=== PATIENT | male | born 1980 | race Caucasian/White ===

== ENCOUNTER 2020-01-23 09:51 | Outpatient (REF) | payer OTHER, SELFPAY ==
[2020-01-23 10:26] LABS: MANUAL DIFF FLAG NO
[2020-01-23 10:31] LABS: Basophils Percent Auto 0.4 % (0-2); Eosinophils Absolute Auto 0.3 X10*3/uL (0.0-0.4); Eosinophils Percent Auto 3.4 % (0-4); Hematocrit 44.1 % (42-52); Hemoglobin 15.1 g/dl (14.0-18.0); Imm Gran Abs Auto 0.03 X10*3/uL (0.00-0.03); Imm Gran Pct Auto 0.4 % (0.0-0.4); Lymphocytes Absolute Auto 1.8 X10*3/uL (1.2-4.9); Lymphocytes Percent Auto 21.9 % (20-40); Mean Corpuscular HGB Conc 34.2 g/dl (31.0-36.0); Mean Corpuscular Hemoglobin 31.5 pg (27.0-33.0); Mean Corpuscular Volume 91.9 fL (80-98); Mean Platelet Volume 9.3 fL (9.4-12.4); Monocytes Absolute Auto 0.6 X10*3/uL (0.1-1.2); Monocytes Percent Auto 7.2 % (2-11); Neutrophils Absolute Auto 5.5 X10*3/uL (2.0-8.3); Neutrophils Percent Auto 66.7 % (45-73); Platelet Count 319 X10*3/uL (160-400); Red Cell Distribution Width 11.9 % (11.0-16.0); White Blood Count 8.3 X10*3/uL (4.8-10.8)
[2020-01-23 10:54] LABS: Alanine Aminotransferase 19 U/L (0-40); Albumin Level 4.3 g/dL (3.5-5.0); Alkaline Phosphatase 70 U/L (39-117); Anion Gap 12 (12-20); Aspartate Amino Transferase 15 U/L (5-37); Bilirubin Total 0.6 mg/dL (0.0-1.0); Blood Urea Nitrogen 15 mg/dL (9-16); Calcium 8.7 mg/dL (8.4-10.2); Carbon Dioxide 27 mmol/L (22-29); Chloride 104 mmol/L (96-108); Cholesterol 171 mg/dL; Estimated Glomerular Filt Rate > 60; Glucose Fasting 109 mg/dL (60-99); HDL Cholesterol 38 mg/dL; LDL Cholesterol Calculated 99 mg/dl; Potassium 4.6 mmol/l (3.3-5.1); Sodium 138 mmol/L (135-145); Total Protein 6.8 g/dL (6.5-8.0); Triglycerides 171 mg/dL
== END 2020-01-23 09:52 | disposition home or self-care (01) ==
LOC: HO.10HDL 09:51
PROVIDERS: Visit Provider Internal Medicine
DX: Z82.49 Family history of ischemic heart disease and other diseases of the circulatory system (principal)
CPT/HCPCS: 36415; 80053; 80061; 85025

== ENCOUNTER 2024-07-10 15:11 | Outpatient (AMB) | payer OTHER, SELFPAY ==
--- NOTE | 2024-07-10 15:26 | A.OFFPC_ITS ---
Vital Signs 07/10/24 15:34 Height 5 ft 7 in Weight 274 lb BMI 42.9 BP 138/80 Blood Pressure Location Lt brachial Position Sitting Pulse 80 Pulse Source Pulse Oximeter Temp 97.9 F Temp Source Axillary Pulse Oximetry (%) 96 Oxygen Delivery Method Room Air Intake Visit Reasons: Routine - see comments Pump Runner Required: No Accompanied by: Self / Same As Patient Allergies No Known Allergies Allergy (Verified 07/10/24 15:27) Tobacco use date assessed: 07/10/24 Dental Screening Dental Screen Date: 07/10/24 Did you have a dental visit in the last 12 months?: Yes Did you have a dental problem in the last 6 months where you did not have access to dental care?: No [facility] Medical History (Updated 07/10/24 @ 16:04 by Georgi Winter MD) Depression, major, in partial remission Body mass index [BMI] 40.0-44.9, adult Family History (Updated 07/10/24 @ 15:40 by Merline Garcia MA) Father No problems noted. Father No problems noted. Social History Housing: House Patient Tobacco Use Status: Former Tobacco user e-Cigarette/Vaping Use: Former Use service: No Current occupational status: employed Cognitive needs: No Hearing needs: No Vision needs: Yes (reading glasses) Questionnaire PHQ-9 Over the last 2 weeks, how often have you been bothered by any of the following problems? 1. Little interest or pleasure in doing things: not at all 2. Feeling down, depressed, or hopeless: not at all 3. Trouble falling or staying asleep, or sleeping too much: not at all 4. Feeling tired or having little energy: not at all 5. Poor appetite or overeating: not at all 6. Feeling bad about yourself - or that you are a failure or have let yourself or your family down: not at all 7. Trouble concentrating on things, such as reading the newspaper or watching television: not at all 8. Moving or speaking so slowly that other people could have noticed. Or the opposite - being so fidgety or restless that you have been moving around a lot more than usual: not at all 9. Thoughts that you would be better off or of hurting yourself in some way: not at all Total score: 0 Source: Developed by Drs. Ishan Pack, Sarai Gibson, Ihsan Estes and colleagues, with an educational parag from [employer]. Thrive Questionnaire Date Thrive assessed: 07/10/24 I am a: Patient Within the past 12 months, did the food you bought not last and you didn't have the money to get more?: Never true Within the past 12 months, did you worry whether your food would run out before you got money to buy more?: Never true Do you have trouble paying for medicines?: No Do you have trouble getting transportation to medical appointments?: No Do you have trouble paying your heating and electricity bill?: No Do you have trouble taking care of your child, family member or friend?: No Do you have trouble with day-to-day activities such as bathing, preparing meals, shopping, managing finances, etc.?: No Are you currently unemployed and looking for a job?: No Are you interested in more education?: No THRIVE Score: 0 AUDIT C Alcohol Use Questionnaire (AUDIT-C) 1. How often do you have a drink containing alcohol?: Never 3. How often do you have six or more drinks on one occasion?: Never Total Score: 0 Physical exam (Primary Care) Vital Signs: Last Vital Signs Temp 97.9 F 07/10/24 15:34 Pulse 80 07/10/24 15:34 BP 138/80 07/10/24 15:34 Pulse Ox 96 07/10/24 15:34 Oxygen Delivery Method Room Air 07/10/24 15:34 BMI result Body Mass Index 42.9 BMI Assessment/Plan discussion: High (one pound per week weight loss suggested.) BMI High, discussed plan: lifestyle, weight reduction and dietary Tobacco/Smoking Status: Tobacco use Status Tobacco use date assessed 07/10/24 07/10/24 15:32 Patient Tobacco Use Status Former Tobacco user 07/10/24 15:40 e-Cigarette/Vaping Use Former Use 07/10/24 15:40 PHQ-9: PHQ-9 Score PHQ-9: Total score 0 07/10/24 15:32 Thrive Assessment: Date of Thrive Assessment Date Thrive assessed 07/10/24 07/10/24 15:32 Coding Level of Care Code New Pt Level 4 (82424) Complex EM visit Add On G2211 Diagnoses Hyperlipidemia E78.5 Body mass index [BMI] 40.0-44.9, adult Z68.41 Depression, major, in partial remission F32.4 Scrotal cyst L72.9 Assessment & Plan Assessment & Plan (1) Hyperlipidemia: Code(s): E78.5 - Hyperlipidemia, unspecified Plan: BW has been ordered. Will call with results. (2) Body mass index [BMI] 40.0-44.9, adult: Code(s): Z68.41 - Body mass index [BMI] 40.0-44.9, adult Category: Medical Plan: Counselling on the importance of diet and exercise (3) Depression, major, in partial remission: Code(s): F32.4 - Major depressive disorder, single episode, in partial remission Category: Medical Plan: Patient was urged to start counselling. Warned him of the dangers of substance use, he is occasionally using now (4) Scrotal cyst: Code(s): L72.9 - Follicular cyst of the skin and subcutaneous tissue, unspecified Plan: History of Present Illness The patient is a 43-year-old male presenting with a skin cyst and increased migraine occurrences. The cyst, located on the scrotum, has recently come to the patient's attention, prompting the visit for evaluation and potential removal. It has not caused any severe symptoms but is a cosmetic and anticipated functional concern. The patient also reports an increase in migraine headaches, a condition he has experienced since childhood. These have increased in frequency without new features or notable triggers. In the past year, he has experienced significant weight gain due to emotional distress following his son's , which also led to a lapse in smoking cessation, although he has abstained from alcohol for the past year. The patient recognizes the need for mental health support and is considering couples counseling. His family history reveals a predisposition to coronary artery disease. 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 - Smoking: Recently resumed after son's - Alcohol: Quit drinking last year - Weight: 270 pounds as of [place], gained 30 pounds - Family: Recently experienced the of a 26-year-old son - Marital status: , contemplating joint counseling with Review of Systems - Skin: Reports presence of a cyst on the scrotum - Neurological: Reports migraines with increased frequency - Psychiatric: Reports increased depressive symptoms since son?s - Respiratory: Denies any respiratory illness Physical Exam General: Cooperative and healthy appearing Nutritional Appearance: Well nourished Orientation/consciousness: Patient oriented x3 Limitations: No limitations Head: Normal to inspection General: Appearance normal, both eyes and all related structures Neck: Normal visual inspection Chest: Normal palpation of entire chest wall Respiratory: N ormal respiratory effort Neurology: Patient oriented x3, reports increased frequency of migraines since childhood. Gen: Large cyst attached to the skin of the scrotum Results Plan I will refer the patient to a general surgeon for the cyst removal to avoid potential enlargement and irritation. Migraine management will continue with lifestyle modifications, and preventative therapy may be considered. Given the patient?s lifestyle changes and depressive symptoms, psychological counseling is recommended, and joint counseling with his is a possibility. Smoking cessation efforts will involve motivational strategies. Due to the family history of coronary artery disease, preventive cardiovascular measures will be emphasized. Patient was informed and verbally consented to the use of an ambient scribe for clinic note documentation during this visit. Discussion Notes During our discussion, I explained the benign nature of the skin cyst but recommended surgical removal to avoid potential growth or irritation. The patient consented to a referral to a general surgeon. We reviewed lifestyle modifications that could prevent migraine exacerbations and explored preventative treatment if necessary. Smoking cessation and personal loss were addressed, with emphasis on counseling as a supportive measure. We covered the importance of maintaining heart health due to his family history, and I offered guidance and resources for managing his health and emotional well-being. Screening for colorectal cancer via a home-based test was suggested due to his age. Follow-up and related procedures were arranged accordingly. Patient Instructions - Follow up with general surgeon for cyst removal - Avoid known migraine triggers and seek appointment if headaches persist - Contact a mental health professional for support and counseling - Continue with smoking cessation efforts - Expect a colorectal screening test in the mail - Maintain regular health monitoring for cardiovascular risks Orders: Orders Basic Metabolic Panel Today E78.5 - Hyperlipidemia, unspecified Complete Blood Count no Diff Today E78.5 - Hyperlipidemia, unspecified Liver Panel Today E78.5 - Hyperlipidemia, unspecified Lipid Panel Today E78.5 - Hyperlipidemia, unspecified Thyroid Stimulating Hormone Today E78.5 - Hyperlipidemia, unspecified UA and rflx microscopic Today E78.5 - Hyperlipidemia, unspecified Referrals Cologuard Test Z12.11 - Encounter for screening for malignant neoplasm of colon General Surgery Referral L72.9 - Follicular cyst of the skin and subcutaneous tissue, unspecified
[2024-07-10 15:34] VITALS: BP 138/80; PULSE 80; TEMP 36.6; O2SAT 96; BMI 42.9
== END 2024-07-10 15:54 | disposition home or self-care (01) ==
LOC: HO.HMCHD 15:11
PROVIDERS: PCP Internal Medicine; Visit Provider Internal Medicine
DX: E78.5 Hyperlipidemia, unspecified (principal); Z68.41 Body mass index [BMI] 40.0-44.9, adult; F32.4 Major depressive disorder, single episode, in partial remission; L72.9 Follicular cyst of the skin and subcutaneous tissue, unspecified

== ENCOUNTER → 2024-07-10 15:11 | Outpatient (BNVA) | payer SELFPAY | PROVIDERS: PCP Internal Medicine; Visit Provider Internal Medicine | DX: L72.9 Follicular cyst of the skin and subcutaneous tissue, unspecified (principal); E78.5 Hyperlipidemia, unspecified; F32.4 Major depressive disorder, single episode, in partial remission | CPT/HCPCS: 96127; 99202 ==

== ENCOUNTER 2024-09-29 11:29 | Outpatient (AMB) | payer OTHER, SELFPAY ==
--- NOTE | 2024-09-29 11:36 | MHC.OFFVIS ---
Vital Signs 09/29/24 11:45 Height 5 ft 7 in Weight 276 lb BMI 43.2 BP 188/107 H Blood Pressure Location Lt brachial Position Sitting Pulse 85 Intake Visit Reasons: scrotal cyst Intake Note: Patient is seen in office for evaluation of a scrotal cyst. 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 The lesion started as a small bump in gradually increased in size over a 2 year period. He denies any ulceration or bleeding from the skin and denies any ongoing pain or history of infection at the site. He has requested excision of the cyst. He denies a previous history of similar lesions on the scrotum. [facility] Medical History Encounter for colorectal cancer screening using Cologuard test (06/2024) Scrotal cyst Depression, major, in partial remission Body mass index [BMI] 40.0-44.9, adult Family History Father No problems noted. Father No problems noted. Social History Housing: House Patient Tobacco Use Status: Former Tobacco user e-Cigarette/Vaping Use: Former Use service: No Current occupational status: employed Cognitive needs: No Hearing needs: No Vision needs: Yes (reading glasses) Review of Systems Const All systems reviewed & are unremarkable except as noted in HPI and below Physical Exam Vital Signs: Last Vital Signs Pulse 85 09/29/24 11:45 BP 188/107 H 09/29/24 11:45 BMI result Body Mass Index 43.2 Const General: cooperative and no acute distress Nutritional Appearance: well nourished Orientation/consciousness: patient oriented x3 Limitations: no limitations HEENT Head: Yes normocephalic and Yes atraumatic Ears: hearing grossly normal bilaterally Resp Effort & Inspection: normal respiratory effort, no audible wheezes, no cough and no respiratory distress Cardio Jugular venous distension: no JVD GI Inspection: Yes normal to inspection Other: Scrotal cyst as noted below Male genitals images:  1. 1.5 cm scrotal cyst to the left of midline in the upper scrotal sac, mobile within the subcutaneous tissue Skin Other: Warm, dry, no rash Neuro General: patient oriented x3 Extrem General: Yes no clubbing, cyanosis or edema Assessment & Plan Assessment & Plan (1) Scrotal cyst: Code(s): L72.9 - Follicular cyst of the skin and subcutaneous tissue, unspecified Category: Medical Plan 43-year-old male presenting with a 1.5 cm scrotal cyst to the left of midline. This has gradually increased in size but has not caused any discomfort or discharge. He is requesting excision of this lesion and I recommended an excision as a short-stay surgery. I reviewed the procedure, risks and alternatives and he consents to excision of the scrotal cyst. Coding Level of Care Code New Pt Level 4 (84382) Diagnoses Scrotal cyst L72.9
[2024-09-29 11:45] VITALS: BP 188/107; PULSE 85; BMI 43.2
== END 2024-09-29 11:51 | disposition home or self-care (01) ==
LOC: HO.HGS 11:30
PROVIDERS: PCP Internal Medicine; Visit Provider Surgery
DX: L72.9 Follicular cyst of the skin and subcutaneous tissue, unspecified (principal)
CPT/HCPCS: 99204

== ENCOUNTER → 2024-09-29 11:29 | Outpatient (BNVA) | payer OTHER, SELFPAY | PROVIDERS: PCP Internal Medicine; Visit Provider Surgery | DX: L72.9 Follicular cyst of the skin and subcutaneous tissue, unspecified (principal) | CPT/HCPCS: 99202 ==

== ENCOUNTER 2024-10-11 10:19 | Day surgery (SDC) | payer OTHER, SELFPAY ==
[2024-10-09 12:14] VITALS: BMI 43.2
[2024-10-11] VITALS (7 sets, daily range): BP systolic 138–160; BP diastolic 68–95; PULSE 77–115; RESP 16–20; TEMP 36.6–36.8; O2SAT 94–98; BMI 42.9
--- NOTE | 2024-10-11 10:32 | ECG_ITS ---
Test Reason : PRE OP Blood Pressure : */* mmHG Vent. Rate : 71 BPM Atrial Rate : 71 BPM P-R Int : 156 ms QRS Dur : 88 ms QT Int : 384 ms P-R-T Axes : 35 -48 18 degrees QTcB Int : 417 ms Normal sinus rhythm Left axis deviation Nonspecific T wave abnormality Abnormal ECG No previous ECGs available Referred By: Georgiana Pak Electronically Signed By: Dakota Elder
[2024-10-11] MEDS: Lactated Ringers 1,000 ML 100 ML IVCONT (10:57)
[2024-10-11 10:59] LABS: Hematocrit 47.7 % (42.0-52.0); Hemoglobin 16.6 g/dl (14.0-18.0); Mean Corpuscular HGB Conc 34.8 g/dl (31.0-36.0); Mean Corpuscular Hemoglobin 30.7 pg (27.0-33.0); Mean Corpuscular Volume 88.2 fL (80.0-98.0); NRBC Abs Auto 0.000 X10*3/uL (0.0-0.012); NRBC Pct Auto 0.0 /100WBC (0.0-0.2); Platelet Count 331 X10*3/uL (160-400); Red Blood Count 5.41 X10*6/uL (4.60-5.80); White Blood Count 8.5 X10*3/uL (4.8-10.8)
--- NOTE | 2024-10-11 11:04 | P.CONAN_ITS ---
Documented by User: Vandana Rodriguez MD 10/11/24 13:22 [facility] Active Problems Active Problems: All Active Problems (Updated 09/06/24 @ 17:28 by Georgi Winter MD) Scrotal cyst (Acute) Depression, major, in partial remission (Acute) Body mass index [BMI] 40.0-44.9, adult (Acute) Past Medical History Medical History Encounter for colorectal cancer screening using Cologuard test (06/2024) Scrotal cyst Depression, major, in partial remission Body mass index [BMI] 40.0-44.9, adult Functional capacity: independent ambulation Family History Family History Father No problems noted. Father No problems noted. Family history of problems with anesthesia: No Surgical History Surgical History No pertinent past surgical history History of Problems with Anesthesia: No Social History Social History Housing: House Patient Tobacco Use Status: Current someday Tobacco user e-Cigarette/Vaping Use: Former Use Have you been hit, kicked, punched, or otherwise hurt by someone within the past year? If so, by whom?: No Are you DNR?: No Advance Directives: No Advance Directives Information Provided: Yes service: No Current occupational status: employed Cognitive needs: No Hearing needs: No Vision needs: Yes (reading glasses) Meds Allergies Allergy/AdvReac Type Severity Reaction Status Date / Time No Known Allergies Allergy Verified 09/29/24 11:42 Active Medications: Current Medications Lactated Ringer's (Lr) 1,000 mls @ 100 mls/hr IVCONT .Q10H DANIEL Last Admin: 10/11/24 10:57 Dose: 100 mls/hr Home Medications ?Medication ?Instructions ?Recorded ?Confirmed ?Last Taken ?Type No Known Home Meds 07/10/24 09/29/24 Un known History Exam Height,Weight and Vital Signs: Height 5 ft 7 in Weight 124.4 kg Last Vital Signs Temp 97.8 F 10/11/24 10:43 Pulse 77 10/11/24 10:43 Resp 20 10/11/24 10:43 BP 160/95 H 10/11/24 10:43 Pulse Ox 97 10/11/24 10:43 O2 Del Method Room Air 10/11/24 10:43 Pertinent Lab Results Pertinent Lab Results: Laboratory Tests 10/11/24 10:50 WBC 8.5 RBC 5.41 Hgb 16.6 Hct 47.7 MCV 88.2 MCH 30.7 MCHC 34.8 RDW 12.5 Plt Count 331 MPV 9.1 L Absolute Nucleated RBC 0.000 Nucleated RBC % (auto) 0.0 Airway Mallampati Class: III TM Dist: >3cm Neck ROM: Full Heart: RRR Lungs: CTA Assessment and Plan Assessment Anesthesia Assessment: Anesthesia Plan Discussed Final Anesthetic Review Family History of Problems with Anesthesia: No History of Problems with Anesthesia: No NPO: Yes ASA Class: III Final Preanesthetic Review: Meds/Allgs Chart Reviewed and Consent Obtained/Reviewed Documented by User: Brittny Russell MD 10/11/24 11:46 PMFSH Past Medical History Medical History Encounter for colorectal cancer screening using Cologuard test (06/2024) Scrotal cyst Depression, major, in partial remission Body mass index [BMI] 40.0-44.9, adult Family History Family History Father No problems noted. Father No problems noted. Surgical History Surgical History No pertinent past surgical history Social History Social History Housing: House Patient Tobacco Use Status: Current someday Tobacco user e-Cigarette/Vaping Use: Former Use Have you been hit, kicked, punched, or otherwise hurt by someone within the past year? If so, by whom?: No Are you DNR?: No Advance Directives: No Advance Directives Information Provided: Yes service: No Current occupational status: employed Cognitive needs: No Hearing needs: No Vision needs: Yes (reading glasses) Meds Allergies Allergy/AdvReac Type Severity Reaction Status Date / Time No Known Allergies Allergy Verified 09/29/24 11:42 Home Medications ?Medication ?Instructions ?Recorded ?Confirmed ?Last Taken ?Type No Known Home Meds 07/10/24 09/29/24 Un known History Exam Airway Mallampati Class: III TM Dist: <=3cm Neck ROM: Full Heart: rrr Lungs: cta Assessment and Plan Assessment Anesthesia Assessment: Anesthesia Plan Discussed and Chart Reviewed Final Anesthetic Review NPO: Yes ASA Class: III Final Preanesthetic Review: No Changes in Pt Med Stat, Meds/Allgs Chart Reviewed, Consent Obtained/Reviewed and Anes Risks/Benef Reviewed Patient Risk: Intermediate Procedure Risk: Low Anesthetic Plan Anesthetic Plan: GA Disposition: Standard PACU
[2024-10-11 11:16] LABS: Anion Gap 14 (12-20); Blood Urea Nitrogen 15 mg/dL (9-16); Calcium 8.7 mg/dL (8.4-10.2); Carbon Dioxide 24 mmol/L (22-29); Chloride 106 mmol/L (96-108); Creatinine Clr Calc Pharmacy 128.2; Estimated Glomerular Filt Rate > 60; Potassium 4.6 mmol/L (3.3-5.1); Sodium 139 mmol/L (135-145)
--- NOTE | 2024-10-11 11:43 | MHC.SHP ---
Pre-Procedural Eval Section A - 24 Hr Update-Section A only Date of Service: 10/11/24 The patient is an INPATIENT: No Changes since office visit: Yes Patient answered all questions; No Cold of Flu in the past 2 weeks, No New Medical Problems and No Changes in Medication The patient has been examined within 24 hours of the surgical procedure. The History & Physical has been completed within 30 days and I have reviewed it.: No Section B - Complete if H&P > 30 days Chief Complaint: Follicular cyst of the skin and subcut tissue Details of Present Illness: no change in patient's symptoms Relevant Family History (Specify if Yes): No Relevant Social History: None Present Medications: see Short Stay Collaborative assessment Medical History: No relevant PMH History of Previous Operations: No relevant previous surgery Allergies: Allergies Allergy/AdvReac Type Severity Reaction Status Date / Time No Known Allergies Allergy Verified 09/29/24 11:42 Review of Systems Sugical H&P ROS: Negative: Constitution, Cardiovascular, Respiratory, Neurological, Psychiatric, Gastrointestinal, Genitourinary, Musculoskeletal, Integumentary and Endocrine Exam Surgical H&P Exam: Normal: HEENT, Normal: Heart, Normal: Lungs, Normal: Extremities, Normal: Abdomen and Normal: Skin Plan Diagnosis/Plan: Unchanged I have reviewed the history and physical and performed a pertinent physical examination on my patient. No changes have occurred unless specified. Time Spent With Patient Time: Total time managing care of this patient today ____ minutes.
--- NOTE | 2024-10-11 13:22 | HO.ANESPROP2 ---
[facility] Active Problems Active Problems: All Active Problems Scrotal cyst (Acute) Depression, major, in partial remission (Acute) Body mass index [BMI] 40.0-44.9, adult (Acute) Past Medical History Medical History Encounter for colorectal cancer screening using Cologuard test (06/2024) Scrotal cyst Depression, major, in partial remission Body mass index [BMI] 40.0-44.9, adult Functional capacity: independent ambulation Family History Family History Father No problems noted. Father No problems noted. Family history of problems with anesthesia: No Surgical History Surgical History No pertinent past surgical history History of Problems with Anesthesia: No Social History Social History Housing: House Patient Tobacco Use Status: Current someday Tobacco user e-Cigarette/Vaping Use: Former Use Have you been hit, kicked, punched, or otherwise hurt by someone within the past year? If so, by whom?: No Are you DNR?: No Advance Directives: No Advance Directives Information Provided: Yes service: No Current occupational status: employed Cognitive needs: No Hearing needs: No Vision needs: Yes (reading glasses) Meds Allergies Allergy/AdvReac Type Severity Reaction Status Date / Time No Known Allergies Allergy Verified 09/29/24 11:42 Active Medications: Current Medications Fentanyl (Fentanyl Citrate/Pf 100 Mcg/2 Ml Vial) 25 mcg IVPUSH Q5M PRN PRN Reason: Pain, Moderate to Severe (Pain Scale 4-10) Stop: 10/11/24 17:46 Lactated Ringer's (Lr) 1,000 mls @ 100 mls/hr IVCONT .Q10H DANIEL Last Admin: 10/11/24 10:57 Dose: 100 mls/hr Naloxone HCl (Naloxone Hcl 0.4 Mg/Ml Vial) 0.04 mg IVPUSH Q5M PRN PRN Reason: Excessive sedation or RR < 8 Ondansetron HCl (Ondansetron Hcl 4 Mg/2 Ml Vial) 4 mg IVPUSH ONCE PRN PRN Reason: Nausea and Vomiting Stop: 10/11/24 17:46 Home Medications ?Medication ?Instructions ?Recorded ?Confirmed ?Last Taken ?Type No Known Home Meds 07/10/24 09/29/24 Unknown History Exam Height,Weight and Vital Signs: Height 5 ft 7 in Weight 124.4 kg Last Vital Signs Temp 97.9 F 10/11/24 12:40 Pulse 85 10/11/24 13:10 Resp 17 10/11/24 13:10 BP 148/87 H 10/11/24 13:10 Pulse Ox 98 10/11/24 13:10 O2 Del Method Room Air 10/11/24 13:10 Pertinent Lab Results Pertinent Lab Results: Laboratory Tests 10/11/24 10:50 WBC 8.5 RBC 5.41 Hgb 16.6 Hct 47.7 MCV 88.2 MCH 30.7 MCHC 34.8 RDW 12.5 Plt Count 331 MPV 9.1 L Absolute Nucleated RBC 0.000 Nucleated RBC % (auto) 0.0 Sodium 139 Potassium 4.6 Chloride 106 Carbon Dioxide 24 Anion Gap 14 BUN 15 Creatinine 0.92 Estim Creat Clear Calc 128.2 Estimated GFR > 60 Fasting Glucose 115 H Calcium 8.7 Airway Mallampati Class: III TM Dist: >3cm Neck ROM: Full Heart: RRR Lungs: CTA Assessment and Plan Assessment Anesthesia Assessment: Anesthesia Plan Discussed Final Anesthetic Review Family History of Problems with Anesthesia: No History of Problems with Anesthesia: No NPO: Yes ASA Class: III Final Preanesthetic Review: Meds/Allgs Chart Reviewed, Consent Obtained/Reviewed and Anes Risks/Benef Reviewed Patient Risk: Intermediate Procedure Risk: Low Anesthetic Plan Anesthetic Plan: GA Disposition: Standard PACU
--- NOTE | 2024-10-11 13:23 | HO.POSTANES ---
Post Anesthesia Evaluation Post Anesthesia Evaluation Date of Service: 10/11/24 Vital Signs: Vital Signs Temp Pulse Resp BP Pulse Ox O2 Del Method 10/11/24 13:10 85 17 148/87 H 98 Room Air 10/11/24 12:55 105 H 20 151/68 H 96 Room Air 10/11/24 12:50 115 H 17 151/92 H 94 Room Air 10/11/24 12:45 115 H 17 144/89 H 95 Room Air 10/11/24 12:40 97.9 F 97 16 143/87 H 95 Room Air 10/11/24 10:43 97.8 F 77 20 160/95 H 97 Room Air Anesthesia: General LMA Mental Status: Awake Pain Control: Satisfactory Nausea/Vomiting: None Hydration: Adequate Anesthesia-Related Issues: No Anes. Related Issues
--- NOTE | 2024-10-11 13:28 | W.PM.OPN ---
Operative Note Operative Note Date of Service: 10/11/24 Narrative: Preoperative diagnosis: Left scrotal cyst Postoperative diagnosis: Same Procedure: Excision left scrotal cyst Surgeon: Raymond Matthews MD Hardwood Floor Installer: Moiz Maradiaga PA-C, Catrachita Arenas, MS-3 Anesthesia: General LMA Indications for procedure: 43-year-old male patient with a previously infected scrotal cyst now presenting for excision of the residual cyst Operative findings: 1.5 cm scrotal cyst left side Specimen: Left scrotal cyst Estimated blood loss: Less than 2 mL Complications: None Procedure details: Patient was brought to the OR placed in a supine position. After administering general anesthesia the patient's scrotum was prepped with Betadine and draped in a sterile fashion. A surgical time-out was called the consent confirmed. Patient received preoperative antibiotics and Venodyne boots were in place. Local anesthesia was infiltrated around the cyst. An elliptical incision oriented longitudinally was then created with a scalpel. This was carried down through subcutaneous tissue and around the cyst wall. The cyst was excised and sent to pathology for further examination. Skin was closed using interrupted 3-0 chromic sutures. Sterile dressings consisting of 4 x 4 gauze and a scrotal support were then applied. The patient tolerated the procedure well. Sponge, instrument, and needle counts reported as correct. The patient was transferred to PACU in stable condition.
--- NOTE | 2024-10-11 17:03 | HO.POSTANES ---
Post Anesthesia Evaluation Post Anesthesia Evaluation Date of Service: 10/11/24 Vital Signs: Vital Signs Temp Pulse Resp BP Pulse Ox O2 Del Method 10/11/24 13:25 98.2 F 87 17 138/90 H 94 Room Air 10/11/24 13:10 85 17 148/87 H 98 Room Air 10/11/24 12:55 105 H 20 151/68 H 96 Room Air 10/11/24 12:50 115 H 17 151/92 H 94 Room Air 10/11/24 12:45 115 H 17 144/89 H 95 Room Air 10/11/24 12:40 97.9 F 97 16 143/87 H 95 Room Air 10/11/24 10:43 97.8 F 77 20 160/95 H 97 Room Air Anesthesia: General LMA Mental Status: Awake Pain Control: Satisfactory Nausea/Vomiting: None Hydration: Adequate Anesthesia-Related Issues: No Anes. Related Issues
== END 2024-10-11 13:48 | disposition home or self-care (01) ==
PROVIDERS: PCP Internal Medicine; Visit Provider Surgery
PROC: (CPT 11422; principal; 2024-10-11 12:00)
DX: L72.0 Epidermal cyst (principal); F32.4 Major depressive disorder, single episode, in partial remission; Z87.891 Personal history of nicotine dependence
CPT/HCPCS: 11422; 36415; 80048; 85027; 88304; 93005; J0131; J0665; J0690; J1100; J1596; J2003; J2250; J2405; J2704; J3010

== ENCOUNTER → 2024-10-11 10:19 | Outpatient (BNV) | payer OTHER, SELFPAY | PROVIDERS: PCP Internal Medicine; Visit Provider Surgery | DX: L72.0 Epidermal cyst (principal) | CPT/HCPCS: 11422 ==

== ENCOUNTER → 2024-10-11 10:32 | Outpatient (BNV) | payer OTHER, SELFPAY | PROVIDERS: PCP Internal Medicine; Visit Provider Internal Medicine Cardiovascular Disease | DX: Z01.810 Encounter for preprocedural cardiovascular examination (principal) | CPT/HCPCS: 93010 ==

== ENCOUNTER 2024-10-23 11:42 | Outpatient (AMB) | payer OTHER, SELFPAY ==
--- NOTE | 2024-10-23 11:44 | A.OFFVIS_ITS ---
Vital Signs 10/23/24 11:50 Height 5 ft 7 in Weight 273 lb 5.971 oz BMI 42.8 Pulse 82 Intake Visit Reasons: S/P exc. scrotal cyst Intake Note: Patient is seen in office for post op assessment post excision of scrotal cyst. Pt c/o: couple of days ago feels like some stitches fell off, denies any other concerns surgery: 10/11/24 Sr Community Manager Required: No Accompanied by: Self / Same As Patient Allergies No Known Allergies Allergy (Verified 10/23/24 11:50) HPI Comments Details: 43-year-old male returning 1 week following excision of the cyst of the scrotal sac. Pathology revealed an epidermal inclusion cyst. He reports feeling the sutures pop when getting out of his pickup truck. He feels the wound opened following this. There has been no bleeding or discharge. FORMERLY [facility], [facility] Medical History Encounter for colorectal cancer screening using Cologuard test (06/2024) Scrotal cyst Depression, major, in partial remission Body mass index [BMI] 40.0-44.9, adult Surgical History Hx of removal of cyst (09/11/24) No pertinent past surgical history Family History Father No problems noted. Father No problems noted. Social History Housing: House Patient Tobacco Use Status: Current someday Tobacco user e-Cigarette/Vaping Use: Former Use service: No Current occupational status: employed Cognitive needs: No Hearing needs: No Vision needs: Yes (reading glasses) Physical Exam Vital Signs: Last Vital Signs Pulse 82 10/23/24 11:50 BMI result Body Mass Index 42.8 Const General: no acute distress Nutritional Appearance: well nourished Orientation/consciousness: patient oriented x3 Resp Effort & Inspection: normal respiratory effort Other: Incision in the upper scrotal sac left side is clean with a small separation. No evidence of infection, bleeding or discharge. Neuro General: patient oriented x3 Assessment & Plan Assessment & Plan (1) Scrotal cyst: Code(s): L72.9 - Follicular cyst of the skin and subcutaneous tissue, unspecified Category: Medical Plan 43-year-old male patient status post excision of a scrotal cyst. There is a slight separation of the scrotal skin after the suture popped but there is no evidence of infection, bleeding or discharge. He should keep the overlying skin clean and pat dry daily. He may clean with peroxide on the daily basis as well. He should follow up as needed. Coding Level of Care Code Global (71148) Diagnoses Scrotal cyst L72.9
[2024-10-23 11:50] VITALS: PULSE 82; BMI 42.8
== END 2024-10-23 11:52 | disposition home or self-care (01) ==
LOC: HO.HGS 11:43
PROVIDERS: PCP Internal Medicine; Visit Provider Surgery
DX: L72.9 Follicular cyst of the skin and subcutaneous tissue, unspecified (principal)
CPT/HCPCS: 99024

== ENCOUNTER → 2024-10-23 11:42 | Outpatient (BNVA) | payer OTHER, SELFPAY | PROVIDERS: PCP Internal Medicine; Visit Provider Surgery | DX: L72.9 Follicular cyst of the skin and subcutaneous tissue, unspecified (principal); Z98.890 Other specified postprocedural states | CPT/HCPCS: 99212 ==